=== PATIENT | female | born 1970 ===

== ENCOUNTER 2021-05-15 09:05 | Outpatient (CLI) | payer OTHER | END 2021-05-15 09:20 | disposition home or self-care (01) | LOC: MAMO-SONO 09:05 | PROVIDERS: ATTEND Internal Medicine Endocrinology, Diabetes & Metabolism | DX: N60.21 Fibroadenosis of right breast (principal); N60.22 Fibroadenosis of left breast; K76.0 Fatty (change of) liver, not elsewhere classified; E04.1 Nontoxic single thyroid nodule ==